=== PATIENT | male | born 1990 | race Caucasian/White ===

== ENCOUNTER 2019-09-06 12:23 | Emergency (ER) | payer OTHER, BC, SELFPAY ==
[2019-09-06 12:32] VITALS: BP 125/77; PULSE 107; RESP 16; TEMP 36.9; O2SAT 97
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
[2019-09-06] MEDS: KETOROLAC (*BKC) 60 MG/2 ML VIAL IM (13:02)
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
== END 2019-09-06 13:26 | disposition home or self-care (01) ==
PROVIDERS: Emergency Provider Nurse Practitioner; PCP Nurse Practitioner Family
DX: S20.221A Contusion of right back wall of thorax, initial encounter (principal); Y04.0XXA Assault by unarmed brawl or fight, initial encounter; F17.200 Nicotine dependence, unspecified, uncomplicated
CPT/HCPCS: 96372; 99203; G0463; J1885